=== PATIENT | female | born 1965 | race Two or more races ===

== ENCOUNTER → 2024-04-19 | Day surgery (SDC) | payer MEDICAID, SELFPAY ==
[2024-04-18 14:19] VITALS: BMI 30.4
[2024-04-19] VITALS (12 sets, daily range): BP systolic 91–155; BP diastolic 69–94; PULSE 79–108; RESP 12–19; TEMP 36.2–37; O2SAT 94–100; BMI 29.5
[2024-04-19] MEDS: SODIUM CHLORIDE 0.9% 250 ML 250 ML 125 ML IV (13:20)
[2024-04-19] MEDS: DiphenhydrAMINE INJ 50 MG/ML VIAL 25 MG IV (13:25)
[2024-04-19] MEDS: MIDAZOLAM INJ 1 MG/ML VIAL 2 ML (ASD USE ONLY) 2 MG IV (13:42)
[2024-04-19] MEDS: fentaNYL CIT INJ 50 mCg/ML AMP 2ML (ASD USE ONLY) IV (13:42)
--- NOTE | 2024-04-19 14:47 | SUR.PHASEII ---
1430 Pt awakens with stimuli. Via [place] speaker-pt denies pain or N/V-then drifts back to sleep. LR IV fluids continue to infuse-per MD order.
--- NOTE | 2024-04-19 15:13 | SUR.PHASEII ---
1500 Pt more awake and alert. No complaints. IV fluids in-HR in 70'-80's. Abd remains soft. Cecil PO fluids.
--- NOTE | 2024-04-19 15:53 | SUR.PHASEII ---
1520 Pt assessment unchanged. No complaints. Amb with steady gait. Daughter assisting with pt getting dressed. Pt req daughter to interpret. DC instructions given. Both state understanding. Pt meets dc criteria-to home.
== END | disposition home or self-care (01) ==
PROVIDERS: PCP Internal Medicine; Referring Provider Internal Medicine Gastroenterology; Visit Provider Internal Medicine Gastroenterology
PROC: 0DBE8ZX Excision of Large Intestine, Via Natural or Artificial Opening Endoscopic, Diagnostic (ICD-10-PCS; CPT 45380; principal; 2024-04-19 13:30)
PROC: (CPT 43239; 2024-04-19 13:30)
DX: K63.5 Polyp of colon (principal); D50.9 Iron deficiency anemia, unspecified; K64.8 Other hemorrhoids; K29.51 Unspecified chronic gastritis with bleeding; K31.7 Polyp of stomach and duodenum; K44.9 Diaphragmatic hernia without obstruction or gangrene
CPT/HCPCS: 45380; A4649; J1200; J2250; J3010; J7050

== ENCOUNTER → 2024-05-03 | Outpatient (CLI) | payer MEDICAID, SELFPAY ==
--- NOTE | 2024-05-03 12:40 | XR_ITS ---
Examination: Bone densitometry Date and time of exam:May 03, 2019 5:12 PM INDICATIONS: Hysterectomy age 31 Technique: Lumbar spine and hip total bone mineralization values of an calculated. Peak reference and age match control results have been displayed. Findings: Lumbar spine total bone mineralization is0.648 gm/cm2. This is 3.6 standard deviations below peak reference. This is 2.4 standard deviations below age-matched controls. Hip total bone mineralization is 0.639 gm/cm2 This is 2.4 standard deviations below peak reference. This is 1.5 standard deviations below age-matched controls Impression: There is osteoporosis based on lumbar spine measurements. There is osteoporosis based on hip measurements
== END | disposition home or self-care (01) ==
PROVIDERS: PCP Internal Medicine; Referring Provider Internal Medicine; Visit Provider Internal Medicine
DX: M81.0 Age-related osteoporosis without current pathological fracture (principal)
CPT/HCPCS: 77080